=== PATIENT | female | born 1935 | race Caucasian/White ===

== ENCOUNTER 2017-06-06 14:18 | Emergency (ER) | payer MEDICARE ==
[2017-06-06] MEDS ORDERED: ONDANSETRON ODT 4 MG TAB ONE (14:43)
[2017-06-06] MEDS ORDERED: MORPHINE SULFATE 2 MG/ML 1ML SYG ONE (14:44)
== END 2017-06-06 16:11 | disposition home or self-care (01) ==
LOC: EDH 14:18
DX: S43.084A Other dislocation of right shoulder joint, initial encounter (principal); I10 Essential (primary) hypertension; E78.00 Pure hypercholesterolemia, unspecified; Z88.2 Allergy status to sulfonamides; Z85.038 Personal history of other malignant neoplasm of large intestine; W18.39XA Other fall on same level, initial encounter; Y93.01 Activity, walking, marching and hiking; Y92.098 Other place in other non-institutional residence as the place of occurrence of the external cause; Y99.8 Other external cause status
CPT/HCPCS: 23650; 73020; 73030; 96372

== ENCOUNTER 2017-06-07 11:27 | Emergency (ER) | payer MEDICARE | END 2017-06-07 12:13 | disposition home or self-care (01) | LOC: EDH 11:27 | DX: R20.2 Paresthesia of skin (principal); I10 Essential (primary) hypertension; E78.00 Pure hypercholesterolemia, unspecified; Z88.2 Allergy status to sulfonamides; Z88.1 Allergy status to other antibiotic agents; Z85.038 Personal history of other malignant neoplasm of large intestine | CPT/HCPCS: 99281 ==

== ENCOUNTER 2017-06-26 07:31 | Emergency (ER) | payer MEDICARE ==
[2017-06-26] MEDS ORDERED: ONDANSETRON HCL 4 MG/2 ML VIAL ONE (07:54)
[2017-06-26] MEDS ORDERED: SODIUM CHLORIDE 0.9% 1000ML 1,000 ML IV ONE (07:54)
[2017-06-26 08:17] LABS: BASOPHILS % (AUTO) 0.5 % (0.0-5.0); EOSINOPHILS % (AUTO) 0.9 % (0.0-8.0); HEMATOCRIT 42.4 % (36-48); LYMPHOCYTES % (AUTO) 16.8 % (21.0-51.0); MEAN CORPUSCULAR VOLUME 88.2 fL (79-99); MONOCYTES % (AUTO) 9.3 % (3.0-13.0); NEUTROPHILS % (AUTO) 72.5 % (40.0-77.0); PLATELET COUNT (AUTO) 299 K/uL (130-400); RED BLOOD CELL COUNT(AUTO) 4.81 MIL/uL (4.00-5.50); RED CELL DISTRIBUTION WIDTH 12.7 % (11.0-15.5); WHITE BLOOD COUNT (AUTO) 7.7 K/uL (4.8-10.8)
[2017-06-26 08:31] LABS: CREATININE 0.8 mg/dL (0.5-1.5); POTASSIUM 3.2 mmol/L (3.5-5.1)
[2017-06-26 08:40] LABS: ALBUMIN 3.3 g/dL (3.5-5.0); BILIRUBIN,TOTAL 0.7 mg/dL (0.2-1.0)
[2017-06-26] MEDS ORDERED: POTASSIUM CHLORIDE 20 MEQ ERTAB PO ONE (09:22)
[2017-06-26 09:24] LABS: APPEARANCE,URINE Cloudy (CLEAR); BILIRUBIN,URINE Negative (NEGATIVE); COLOR,URINE Yellow (YELLOW); GLUCOSE, URINE (UA) Negative (NEGATIVE); KETONES,URINE Negative (NEGATIVE); LEUKOCYTE ESTERASE ,URINE Trace (NEGATIVE); NITRATE,URINE Negative (NEGATIVE); OCCULT BLOOD,URINE Negative (NEGATIVE); PH,URINE 7.5 (5.0-8.0); PROTEIN,URINE Negative (NEGATIVE); UROBILINOGEN,URINE 0.2 mg/dL (0.2-1.0)
[2017-06-26 09:58] LABS: BACTERIA,URINE Rare /HPF (None Seen); SQUAMOUS EPITHELIAL CELL,UR Moderate /LPF (0-2); WBC,URINE 0-1 /HPF (0-1)
== END 2017-06-26 10:05 | disposition home or self-care (01) ==
LOC: EDH 07:31
DX: K29.70 Gastritis, unspecified, without bleeding (principal); E78.00 Pure hypercholesterolemia, unspecified; I10 Essential (primary) hypertension; C18.9 Malignant neoplasm of colon, unspecified; Z88.2 Allergy status to sulfonamides; Z88.6 Allergy status to analgesic agent; Z88.8 Allergy status to other drugs, medicaments and biological substances
CPT/HCPCS: 36415; 80053; 81001; 82550; 83690; 84484; 85025; 93005; 96374; 99285; J2405; J7030

== ENCOUNTER 2020-04-13 11:54 | Emergency (ER) | payer MEDICARE ==
[2020-04-13 12:47] LABS: BASOPHILS % (AUTO) 0.6 % (0.0-5.0); EOSINOPHILS % (AUTO) 1.1 % (0.0-8.0); HEMATOCRIT 46.9 % (36-48); LYMPHOCYTES % (AUTO) 18.4 % (21.0-51.0); MEAN CORPUSCULAR HEMOGLOBIN 28.8 pg (27.0-33.0); MEAN CORPUSCULAR HGB CONC 32.4 g/dL (32.0-36.0); MEAN CORPUSCULAR VOLUME 88.8 fL (79-99); MONOCYTES % (AUTO) 8.7 % (3.0-13.0); NEUTROPHILS % (AUTO) 70.4 % (40.0-77.0); PLATELET COUNT (AUTO) 251 K/uL (130-400); RED BLOOD CELL COUNT(AUTO) 5.28 MIL/uL (4.00-5.50); RED CELL DISTRIBUTION WIDTH 12.9 % (11.0-15.5); WHITE BLOOD COUNT (AUTO) 9.3 K/uL (4.8-10.8)
[2020-04-13 12:59] LABS: APPEARANCE,URINE Clear (CLEAR); BILIRUBIN,URINE Negative (NEGATIVE); COLOR,URINE Yellow (YELLOW); GLUCOSE, URINE (UA) Negative (NEGATIVE); KETONES,URINE Negative (NEGATIVE); LEUKOCYTE ESTERASE ,URINE Trace (NEGATIVE); NITRATE,URINE Negative (NEGATIVE); OCCULT BLOOD,URINE Negative (NEGATIVE); PH,URINE 7.5 (5.0-8.0); PROTEIN,URINE Negative (NEGATIVE)
[2020-04-13 13:25] LABS: BACTERIA,URINE Rare /HPF (None Seen); RBC,URINE 0-1 /HPF (0-1); SQUAMOUS EPITHELIAL CELL,UR Rare /HPF (0-2); WBC,URINE 0-1 /HPF (0-1)
[2020-04-13 14:23] LABS: ALBUMIN 3.1 g/dL (3.5-5.0); BILIRUBIN,TOTAL 0.4 mg/dL (0.2-1.0); CREATININE 0.8 mg/dL (0.5-1.5); POTASSIUM 4.2 mmol/L (3.5-5.1); TOTAL PROTEIN, SERUM 6.9 g/dL (6.0-8.3)
== END 2020-04-13 14:46 | disposition home or self-care (01) ==
LOC: EDH 11:54
DX: N30.00 Acute cystitis without hematuria (principal); I10 Essential (primary) hypertension; E11.9 Type 2 diabetes mellitus without complications; E78.00 Pure hypercholesterolemia, unspecified; Z90.710 Acquired absence of both cervix and uterus; Z88.1 Allergy status to other antibiotic agents; Z88.2 Allergy status to sulfonamides; Z88.8 Allergy status to other drugs, medicaments and biological substances; Z98.890 Other specified postprocedural states; Z85.038 Personal history of other malignant neoplasm of large intestine
CPT/HCPCS: 36415; 80053; 81001; 85025; 87040

== ENCOUNTER 2022-06-20 11:20 | Emergency (ER) | payer MEDICARE ==
[~2022-06-20] VITALS: Ht 152.4 cm; Wt 81.6 kg
[2022-06-20 11:42] LABS: BASOPHILS % (AUTO) 0.4 % (0.0-5.0); EOSINOPHILS % (AUTO) 1.5 % (0.0-8.0); HEMATOCRIT 42.1 % (36-48); LYMPHOCYTES % (AUTO) 16.8 % (21.0-51.0); MEAN CORPUSCULAR HEMOGLOBIN 28.4 pg (27.0-33.0); MEAN CORPUSCULAR HGB CONC 32.1 g/dL (32.0-36.0); MEAN CORPUSCULAR VOLUME 88.6 fL (79-99); MONOCYTES % (AUTO) 11.8 % (3.0-13.0); NEUTROPHILS % (AUTO) 68.7 % (40.0-77.0); PLATELET COUNT (AUTO) 226 K/uL (130-400); RED BLOOD CELL COUNT(AUTO) 4.75 MIL/uL (4.00-5.50); WHITE BLOOD COUNT (AUTO) 7.9 K/uL (4.8-10.8)
[2022-06-20 11:50] LABS: CREATININE 0.7 mg/dL (0.5-1.5); POTASSIUM 3.9 mmol/L (3.5-5.1)
[2022-06-20 11:54] LABS: ALBUMIN 2.9 g/dL (3.5-5.0); TOTAL PROTEIN, SERUM 6.5 g/dL (6.0-8.3)
[2022-06-20 12:30] VITALS: BP 139/70
[2022-06-20 12:34] LABS: APPEARANCE,URINE CLEAR (CLEAR); BILIRUBIN,URINE NEGATIVE (NEGATIVE); COLOR,URINE YELLOW (YELLOW); GLUCOSE, URINE (UA) NEGATIVE (NEGATIVE); KETONES,URINE NEGATIVE (NEGATIVE); LEUKOCYTE ESTERASE ,URINE NEGATIVE Leu/uL (NEGATIVE); NITRATE,URINE NEGATIVE (NEGATIVE); OCCULT BLOOD,URINE NEGATIVE (NEGATIVE); PROTEIN,URINE NEGATIVE (NEGATIVE)
[2022-06-20] MEDS ORDERED: 0.9%NACL 1000ML 1,000 ML IV ONE (13:30)
[2022-06-20] MEDS ORDERED: AZIT500T4 PO (15:51)
== END 2022-06-20 15:56 | disposition home or self-care (01) ==
LOC: EDH 11:20
DX: E86.0 Dehydration (principal); I10 Essential (primary) hypertension; E11.9 Type 2 diabetes mellitus without complications; E78.00 Pure hypercholesterolemia, unspecified; Z88.2 Allergy status to sulfonamides; Z88.1 Allergy status to other antibiotic agents; Z90.89 Acquired absence of other organs; Z90.710 Acquired absence of both cervix and uterus
CPT/HCPCS: 36415; 71045; 80053; 81003; 83880; 84484; 85025; 93005

== ENCOUNTER 2025-04-14 21:08 | Emergency (ER) | payer MEDICARE ==
[~2025-04-14] VITALS: Ht 152.4 cm; Wt 89.8 kg
--- NOTE | 2025-04-14 21:23 | ERN ---
ED Note History of Present Illness Stated Complaint: C/O PAIN TO LEFT BACK/THIGH RADIATING DOWN LT LEG Chief Complaint: Low Back Pain/Injury Time Seen by MD: 21:12 Dictation: PATIENT IS AN 89-YEAR-OLD FEMALE HERE WITH HER WITH COMPLAINTS OF LEFT POSTERIOR LATERAL HIP AND PELVIC PAIN THAT RADIATES DOWN THE LEFT THIGH ONSET TWO DAYS AGO. DENIES ANY TRAUMA OR FALLS. SHE HAS HAS HAD NO HIP SURGERY OR BACK SURGERY. CHANGES IN URINATION. PRIMARY CARE DOCTORS . Allergies: Coded Allergies: Sulfa (Sulfonamide Antibiotics) (Unverified Allergy, Unknown, 06/20/22) levofloxacin (Unverified Allergy, Unknown, 06/20/22) Home Meds Active Scripts Azithromycin (Azithromycin) 500 Mg Tablet, 500 MG PO DAILY for 4 Days, #4 TAB Prov:NAI TERAN MD 06/20/22 Past Medical History Past Medical History: Diabetes-Type II, High Cholesterol, Hypertension, Other Additional Past Medical Hx: HX OF COLON CA (IN REMISSION) Surgical History: Hysterectomy Surgical History Other: COLON RESECTION, WRIST Social History: Negative, Lives with family History: Not Applicable RN Note Reviewed/Agreed w/PFSH: Yes Review of System Dictation CONSTITUTIONAL: NEGATIVE EXCEPT FOR HPI HEAD/FACE: NEGATIVE EXCEPT FOR HPI EENT: NEGATIVE EXCEPT FOR HPI RESPIRATORY: NEGATIVE EXCEPT FOR HPI GASTROINTESTINAL/ABDOMINAL: NEGATIVE EXCEPT FOR HPI GENITOURINARY: NEGATIVE EXCEPT FOR HPI MUSCULOSKELETAL: NEGATIVE EXCEPT FOR HPI LEFT POSTEROLATERAL HIP PAIN INTEGUMENTARY: NEGATIVE EXCEPT FOR HPI NEUROLOGICAL/PSYCH: NEGATIVE EXCEPT FOR HPI HEMATOLOGIC/LYMPHATIC: NEGATIVE EXCEPT FOR HPI ALL SYSTEMS NEGATIVE, EXCEPT NOTED ABOVE. 13 POINT REVIEW OF SYSTEMS ASSESSED AND ALL NEGATIVE EXCEPT FOR ABOVE. Initial Vital Sign VS Vital Signs Date Time Temp Pulse Resp B/P (MAP) Pulse Ox O2 Delivery O2 Flow Rate FiO2 04/14/25 21:11 97.9 87 20 201/101 95 Room Air 04/14/25 21:40 0 21 Physical Exam Dictation VITAL SIGNS REVIEWED GENERAL APPEARANCE: ALERT, ORIENTED X 3, MODERATE ACUTE DISTRESS, WELL DEVELOPED, NOURISHED. HEAD AND FACE: NON-TRAUMATIC. EYES: PERRL, PINK CONJUNCTIVAS, EYELID NO TRAUMA, ANTERIOR CHAMBER WITH ARCUS SENILIS. EARS: PINNAS INTACT AND NO SIGNS OF TRAUMA OR ERYTHEMA EAR CANALS CLEAR AND NO DISCHARGE TM NO ERYTHEMA NOSE: NO DISCHARGE, NO BLEEDING. OROPHARYNX: MOUTH NORMAL, TONGUE PINK, PHARYNX CLEAR,NO ERYTHEMA, TONSILS NO EXUDATES, NO ABSCESSES NOTED, MUCOUS MEMBRANE MOIST NECK: SUPPLE, NON-TENDER, NO THYROMEGALY, NO MASSES, NO JVD, NO BRUITS BREAST:DEFERRED CHEST:NO TENDERNESS, NO CREPITUS, NO PARADOXICAL MOVEMENT, NO RETRACTIONS LUNGS:CLEAR, WELL-VENTILATED, SYMMETRIC, NO RALES, NO WHEEZING, NO RHONCHI, NO STRIDOR, GOOD BREATH SOUNDS BILATERALLY HEART: REGULAR RATE, REGULAR RHYTHM, NO MURMUR, NO GALLOPS VASCULAR: NO PERIPHERAL EDEMA, ABDOMEN: SOFT, POSITIVE BOWEL SOUNDS, NONDISTENDED, NO GUARDING, NONTENDER, NO REBOUND, NO MASSES NO HEPATOMEGALY, NO SPLENOMEGALY, NO ARREOLA'S SIGN, NO HERNIAS. RECTAL: DEFERRED GENITAL: DEFERRED NEUROLOGICAL: NORMAL SPEECH, MOTOR FUNCTION INTACT, SENSORY FUNCTION INTACT MUSCULOSKELETAL: NECK NONTENDER, FULL RANGE OF MOTION, BACK NONTENDER, FULL RANG E OF MOTION, EXTREMITIES: LEFT POSTEROLATERAL TENDERNESS TO HIP WITH PALPATION. SKIN: COLOR PINK, DRY, NO TURGOR, NO RASH, NO LACERATIONS, NO ABRASIONS, NO CONTUSIONS. LYMPHATIC: DEFERRED Results (Laboratory/Radiology) Labs Reviewed?: Yes ED Course ED Course Orders Procedure Category Date Status Time Dexamethasone 4mg/Ml PHA 04/14/25 Complete 1ml Vial (Dexametha 21:30 Hydrocodone/Apap PHA 04/14/25 Complete 5/325 ([place] 5/325mg) 21:30 Hip Unilat 2-3vw Left RAD 04/14/25 Resulted 21:17 Sacroiliac Jts 3+Vws RAD 04/14/25 Resulted 21:42 Current Medications Medications (Trade) Dose Ordered Sig/Vianney Route PRN Reason Start Time Stop Time Status Last Admin Dose Admin Acetaminophen/ Hydrocodone Bitart (NORco 5/325MG) 1 tab ONCE ONCE PO 04/14/25 21:30 04/14/25 21:31 DC 04/14/25 21:49 Dexamethasone Sodium Phosphate (dexaMETHasone 4MG/ML 1ML VIAL) 8 mg ONCE ONCE IM 04/14/25 21:30 04/14/25 21:31 DC 04/14/25 21:49 Vital Signs Date Time Temp Pulse Resp B/P (MAP) Pulse Ox O2 Delivery O2 Flow Rate FiO2 04/14/25 21:40 97.9 89 18 169/89 95 Room Air* 0 21 04/14/25 21:11 97.9 87 20 201/101 95 Room Air Medical Decision Making MDM Received pt from [facility] from earlier today. Pt well appearing. NAD. Pain better after meds. XR negative. DC home DX & DISP Disposition: Discharge Departure Impression: Primary Impression: Osteoporosis Additional Impressions: Osteopenia, Sacroiliac joint pain Condition: Stable Referrals: EDWARDO KEYES MD (PCP) [employer] Apr 14, 2025 21:23 LILIA LOPES MD Apr 15, 2025 00:08
--- NOTE | 2025-04-14 21:39 | NUR ---
PT CARE ASSUMED AT THIS TIME
[2025-04-14] MEDS: HYDROcodone/APAP 5/325 1 TAB TABLET PO ONE (21:49)
--- NOTE | 2025-04-14 22:12 | HMCIMG ---
EXAM: CR Pelvis and Left Hip, 2 views. CLINICAL HISTORY: Nontraumatic pain. COMPARISON: None provided. FINDINGS: No acute fracture or aggressive appearing osseous lesion. Mild osteopenia. 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 Surgical clips in the left side of the abdomen and pelvic regions. The soft tissues are unremarkable. IMPRESSION: No acute bony abnormality is evident. Mild osteopenia. Mild osteoarthritis. /[place]
--- NOTE | 2025-04-15 | HMCIMG ---
EXAM: CR bilateral Sacroiliac Joints, 3 views. CLINICAL HISTORY: Left sacral tenderness. COMPARISON: None provided. FINDINGS: No acute fracture or aggressive appearing osseous lesion. Mild osteopenia. Mild to moderate osteoarthritis in the bilateral hip, sacroiliac, and symphysis pubis joints. Surgical clips in the left lower abdomen and pelvic regions. Presumed pelvic phleboliths. IMPRESSION: No acute bony abnormality is evident on radiographic evaluation. If the clinical concern persists, recommend a noncontrast CT scan of the pelvis for further evaluation.. Mild osteopenia. Mild to moderate osteoarthritis. /[place]
[2025-04-15 00:24] VITALS: BP 169/91; PULSE 82; RESP 16; TEMP 97.9; O2SAT 96
== END 2025-04-15 00:29 | disposition home or self-care (01) ==
LOC: EDH 21:08
DX: M81.0 Age-related osteoporosis without current pathological fracture (principal); M16.12 Unilateral primary osteoarthritis, left hip; M85.88 Other specified disorders of bone density and structure, other site; M53.3 Sacrococcygeal disorders, not elsewhere classified; E11.9 Type 2 diabetes mellitus without complications; E78.00 Pure hypercholesterolemia, unspecified; I10 Essential (primary) hypertension; Z85.038 Personal history of other malignant neoplasm of large intestine; Z88.1 Allergy status to other antibiotic agents; Z88.2 Allergy status to sulfonamides; Z90.710 Acquired absence of both cervix and uterus
CPT/HCPCS: 99284; 73502; 72202; 96372; J1100; 99283

== ENCOUNTER 2025-04-19 02:17 | Emergency (ER) | payer MEDICARE ==
[~2025-04-19] VITALS: Ht 152.4 cm; Wt 86.2 kg
[2025-04-19 02:18] VITALS: BP 175/88; PULSE 73; RESP 18; TEMP 97.5
--- NOTE | 2025-04-19 02:24 | ERN ---
General Chief Complaint: Lower Extremity Pain/Injury Stated Complaint: "SCIATIC" PAIN Time Seen by MD: 02:19 History of Present Illness Initial Comments 89-year-old female here for evaluation of left-sided leg pain. Patient was seen and evaluated by me recently and discharged home with medications. She follow up with the primary care doctor who prescribed the patient a muscle relaxant. States that the symptoms have been very bad thus she decided to come to the emergency room for evaluation. No numbness or tingling bilateral lower extremities. No bowel or bladder incontinence. No fever no cough no shortness a breath. No chest pain or palpitations. Allergies: Coded Allergies: Sulfa (Sulfonamide Antibiotics) (Unverified Allergy, Unknown, 06/20/22) levofloxacin (Unverified Allergy, Unknown, 06/20/22) Home Meds Active Scripts Azithromycin (Azithromycin) 500 Mg Tablet, 500 MG PO DAILY for 4 Days, #4 TAB Prov:NAI TERAN MD 06/20/22 Past Medical History Past Medical History: Diabetes-Type II, High Cholesterol, Hypertension, Other Medical History Other: HX OF COLON CA (IN REMISSION) Past Surgical History: Hysterectomy Surgical History Other: COLON RESECTION, WRIST Social History Social History: Negative, Lives with family Female( History) History: Not Applicable Musculoskeletal: (+) back pain Physical Exam General Appearance: (+) mild distress General Appearance comment Mild distress secondary to pain Eye: bilateral eye normal inspection, bilateral eye PERRL, bilateral eye EOMI Ear, Nose, Throat: (+) hearing grossly normal, (+) normal ENT inspection, (+) moist mucous membraine Neck: (+) normal inspection, (+) supple, (+) full range of motion Respiratory: (+) chest non-tender, (+) well ventilated Heart: (+) regular; (-) murmur [facility] 89-year-old female here for sciatic pain. She did not take any NSAIDs at this time. We will give her a dose of Toradol here, lidocaine and reassess. 0324: Patient much improved at this time. Pain-free. Advised patient to follow up with the PCP for other medication management of sciatica. We will send her home with capsaicin cream ED Course Orders Procedure Category Date Status Time Ketorolac PHA 04/19/25 Complete Tromethamine 15mg/Ml 02:30 Lidocaine (Lidocaine PHA 04/19/25 Complete Patch 4%) 02:30 Hydrocodone/Apap PHA 04/19/25 Complete 5/325 ([place] 5/325mg) 02:30 Capsaicin Cream PHA 04/19/25 Complete 56.6gm (Trixaicin 02:30 Current Medications Medications (Trade) Dose Ordered Sig/Vianney Route PRN Reason Start Time Stop Time Status Last Admin Dose Admin Acetaminophen/ Hydrocodone Bitart (NORco 5/325MG) 1 tab ONCE ONCE PO 04/19/25 02:30 04/19/25 02:33 DC 04/19/25 02:38 Capsaicin (Trixaicin Cream 56.6gm) ONCE ONCE TP 04/19/25 02:30 04/19/25 02:31 DC 04/19/25 03:12 Ketorolac Tromethamine (toRADol) 15 mg ONCE ONCE IM 04/19/25 02:30 04/19/25 02:33 DC 04/19/25 02:38 Lidocaine (Lidocaine Patch 4%) 1 each ONCE ONCE TP 04/19/25 02:30 04/19/25 02:33 DC 04/19/25 02:38 Vital Signs Date Time Temp Pulse Resp B/P (MAP) Pulse Ox O2 Delivery O2 Flow Rate FiO2 04/19/25 02:18 97.5 73 18 175/88 96 Room Air DX & DISP Disposition: Discharge Departure Impression: Primary Impression: Sciatic nerve pain Condition: Stable Referrals: EDWARDO KEYES MD (PCP) LILIA LOPES MD Apr 19, 2025 02:24
[2025-04-19] MEDS: HYDROcodone/APAP 5/325 1 TAB TABLET PO ONE (02:38)
[2025-04-19] MEDS: LIDOCAINE 4% ADH..PATCH TP ONE (02:38)
[2025-04-19] MEDS: CAPSAICIN CREAM 56.6GM TP ONE (03:12)
== END 2025-04-19 03:34 | disposition home or self-care (01) ==
LOC: EDH 02:17
DX: M54.32 Sciatica, left side (principal); E11.9 Type 2 diabetes mellitus without complications; E78.00 Pure hypercholesterolemia, unspecified; I10 Essential (primary) hypertension; Z85.038 Personal history of other malignant neoplasm of large intestine; Z88.1 Allergy status to other antibiotic agents; Z88.2 Allergy status to sulfonamides; Z90.710 Acquired absence of both cervix and uterus
CPT/HCPCS: 99284; 96372; J1885